=== PATIENT | female | born 1980 | race Caucasian/White ===

== ENCOUNTER → 2020-05-07 | Outpatient (CLI) | payer OTHER ==
[~2020-05-07] MED LIST: BUPR300T92 PO; NITR100C62 PO; SERT100T PO; [UNRECOGNIZED DRUG - CODE] PO; [UNRECOGNIZED DRUG - OTHER]
--- NOTE | 2020-05-07 15:48 | KCIC ---
EXAM: CT coronary artery calcium screening; radiologist over read. HISTORY: Coronary vascular screening. Family history of heart disease. TECHNIQUE: Computed tomographic images of the chest were obtained without contrast. Multiplanar refor matting was performed. *One or more of the following individualized dose reduction techniques were utilized for this examina tion: 1. Automated exposure control. 2. Adjustment of the mA and/or kV according to patient size. 3. Use of iterative reconstruction technique. COMPARISON: None. FINDINGS: The heart is normal in size. The visualized aorta is normal in caliber. There is no lymphad enopathy. There is no infiltrate, pleural effusion or pneumothorax. There is no suspicious pulmonary nodule. There is no acute finding involving the abdomen or osseous structures. Coronary artery calcium score: 0. IMPRESSION: 1. Coronary artery calcium score of 0. 2. No significant incidental thoracic finding. Electronically signed by: Maria Fernanda Warren MD (05/07/2020 3:46 PM) [id number]
== END ==
LOC: KCIC 13:08
PROVIDERS: ATTEND Obstetrics & Gynecology
DX: Z13.6 Encounter for screening for cardiovascular disorders (principal); Z82.49 Family history of ischemic heart disease and other diseases of the circulatory system
CPT/HCPCS: 75571

== ENCOUNTER → 2020-05-07 | Outpatient (CLI) | payer OTHER ==
--- NOTE | 2020-05-07 14:41 | KCIC ---
EXAM: Bilateral screening mammogram. HISTORY: 40-year-old female presents for screening mammography. TECHNIQUE: Full-field digital craniocaudal and mediolateral oblique views of both breasts are obtaine d for evaluation. Computer aided detection was applied. COMPARISON: None. This is a baseline mammogram. BREAST PARENCHYMAL DENSITY: Level B - Scattered fibroglandular densities. FINDINGS: There is no suspicious mass, microcalcification or region of architectural distortion. IMPRESSION: BI-RADS Category 2: Benign finding(s). RECOMMENDATION: Annual mammography is recommended. If your mammogram demonstrates that you have dense breast tissue, which could hide abnormalities, and if you have other risk factors for breast cancer that have been identified, you might benefit from s upplemental screening tests that may be suggested by your ordering physician. Dense breast tissue, i n and of itself, is a relatively common condition. This information is not provided to cause undue c oncern, but rather to raise your awareness and to promote discussion with your physician regarding th e presence of other risk factors, in addition to dense breast tissue. A report of your mammography re sults will be sent to you and your physician. You should contact your physician if you have any ques tions or concerns regarding this report. Mammography is a sensitive method for finding small breast cancers, but it does not detect them all a nd is not a substitute for careful clinical examination. A negative mammogram does not negate a clin ically suspicious finding and should not result in delay in biopsying a clinically suspicious abnorma lity. PQRS compliance statement - Patient information was entered into a reminder system with a target due date for the next mammogram. "Our facility is accredited by the [employer] Mammography Program." Electronically signed by: Maria Fernanda Warren MD (05/07/2020 2:38 PM) [id number]
== END ==
LOC: KCIC MAMMO 12:17
PROVIDERS: ATTEND Obstetrics & Gynecology
DX: Z12.31 Encounter for screening mammogram for malignant neoplasm of breast (principal)
CPT/HCPCS: 77067